=== PATIENT | male | born 1980 | race Caucasian/White ===

== ENCOUNTER 2023-04-13 06:43 | Emergency (ER) | payer MEDICAID, OTHER ==
[2023-04-13 08:35] LABS: BASOPHILS ABSOLUTE AUTO 0.12 K/uL (0.00-0.10); BASOPHILS PERCENT AUTO 0.5 % (0.1-1.3); EOSINOPHILS ABSOLUTE AUTO 0.45 K/uL (0.00-0.40); HEMOGLOBIN 12.5 g/dL (12.9-16.9); IMMATURE GRAN ABSOLUTE AUTO 0.43 K/uL (0.00-0.23); IMMATURE GRAN PERCENT AUTO 1.9 % (0.0-0.7); LYMPHOCYTES ABSOLUTE AUTO 1.34 K/uL (0.8-3.3); MEAN CORPUSCULAR HEMOGLOBIN 35.1 pg (31.6-35.5); MEAN CORPUSCULAR HGB CONC 34.7 g/dL (31.6-35.5); MEAN CORPUSCULAR VOLUME 101.1 fL (81.4-99.0); MONOCYTES ABSOLUTE AUTO 1.42 K/uL (0.20-0.90); MONOCYTES PERCENT AUTO 6.4 % (3.3-12.6); NEUTROPHILS ABSOLUTE AUTO 18.39 K/uL (1.0-7.6); NEUTROPHILS PERCENT AUTO 83.2 % (40.0-78.1); PLATELET COUNT,PLT 227 K/uL (130-375); RED BLOOD CELL COUNT 3.56 M/uL (4.14-5.76); WHITE BLOOD CELL COUNT,WBC 22.2 K/uL (3.2-11.0)
[2023-04-13 08:55] LABS: A/G RATIO 0.2 (1.2-2.2); ALANINE AMINOTRANSFERASE,ALT 54 U/L (12-78); ALBUMIN 1.2 g/dL (3.4-5.0); ALKALINE PHOSPHATASE 335 U/L (46-116); BILIRUBIN TOTAL 13.4 mg/dL (0.2-1.0); BLOOD UREA NITROGEN,BUN 28 mg/dL (7-18); CALCIUM 7.9 mg/dL (8.5-10.1); CARBON DIOXIDE,CO2 25 mmol/L (21-32); CHLORIDE,CL 97 mmol/L (100-108); CREATININE 1.1 mg/dL (0.8-1.3); ESTIMATED GFR 85 mL/min (>60); GLUCOSE RANDOM 126 mg/dL (74-106); POTASSIUM,K 3.9 mmol/L (3.6-5.2); SODIUM,NA 130 mmol/L (140-148)
[2023-04-13 08:56] LABS: ANION GAP 11.9 mmol/L (5.0-14.0)
[2023-04-13 08:57] LABS: ASPARTATE AMNIOTRANSFERASE,AST 129 U/L (15-37); PROTEIN TOTAL,TP 6.2 g/dL (6.4-8.2)
== END 2023-04-13 11:55 | disposition home or self-care (01) ==
LOC: JP.ED 06:43
DX: K72.00 Acute and subacute hepatic failure without coma (principal); F17.210 Nicotine dependence, cigarettes, uncomplicated; E66.9 Obesity, unspecified; Z79.899 Other long term (current) drug therapy
CPT/HCPCS: 36415; 49083; 80053; 85025; 99284

== ENCOUNTER 2023-04-16 08:15 | Emergency (ER) | payer OTHER ==
[2023-04-16 08:59] LABS: HEMATOCRIT 37.7 % (38.4-49.7); HEMOGLOBIN 13.1 g/dL (12.9-16.9); MEAN CORPUSCULAR HEMOGLOBIN 35.3 pg (31.6-35.5); MEAN CORPUSCULAR HGB CONC 34.7 g/dL (31.6-35.5); MEAN CORPUSCULAR VOLUME 101.6 fL (81.4-99.0); PLATELET COUNT,PLT 207 K/uL (130-375); RED BLOOD CELL COUNT 3.71 M/uL (4.14-5.76); WHITE BLOOD CELL COUNT,WBC 29.2 K/uL (3.2-11.0)
[2023-04-16 09:15] LABS: INR 1.4
[2023-04-16 09:18] LABS: A/G RATIO 0.2 (1.2-2.2); ALANINE AMINOTRANSFERASE,ALT 58 U/L (12-78); ALBUMIN 1.2 g/dL (3.4-5.0); ALKALINE PHOSPHATASE 373 U/L (46-116); ASPARTATE AMNIOTRANSFERASE,AST 150 U/L (15-37); BILIRUBIN TOTAL 10.5 mg/dL (0.2-1.0); BLOOD UREA NITROGEN,BUN 33 mg/dL (7-18); CALCIUM 8.3 mg/dL (8.5-10.1); CARBON DIOXIDE,CO2 27 mmol/L (21-32); CHLORIDE,CL 98 mmol/L (100-108); CREATININE 1.1 mg/dL (0.8-1.3); EST CRCL DRUG DOSING (CG) 95.04 mL/min; ESTIMATED GFR 85 mL/min (>60); GLUCOSE RANDOM 117 mg/dL (74-106); POTASSIUM,K 4.6 mmol/L (3.6-5.2); PROTEIN TOTAL,TP 6.6 g/dL (6.4-8.2); SODIUM,NA 131 mmol/L (140-148)
[2023-04-16 09:22] LABS: ANION GAP 10.6 mmol/L (5.0-14.0)
[2023-04-16 09:27] LABS: BAND ABSOLUTE MAN 1.17 K/uL; BAND PERCENT MAN 4 % (5-11); EOSINOPHILS ABSOLUTE MAN 0.29 K/uL (0.00-0.40); EOSINOPHILS PERCENT MAN 1 % (2-4); LYMPHOCYTES ABSOLUTE MAN 1.75 K/uL (0.8-3.3); LYMPHOCYTES PERCENT MAN 6 % (24-44); MONOCYTES ABSOLUTE MAN 1.75 K/uL (0.20-0.90); MONOCYTES PERCENT MAN 6 % (2-6); NEUTROPHILS ABSOLUTE MAN 24.24 K/uL (1.0-7.6); SEG NEUTROPHILS PERCENT MAN 83 % (36-66)
[2023-04-16 11:52] LABS: BODY FLUID TYPE PERITONEAL FLUID
[2023-04-16 12:06] LABS: GLUCOSE,BODY FLUID 146 mg/dL; LIPASE,BODY FLUID 176 U/L
[2023-04-16 12:15] LABS: PROTEIN,BODY FLUID < 2 g/dL; TRIGLYCERIDES,BODY FLUID 159 mg/dL
[2023-04-16 12:16] LABS: LACTATE DEHYDROGENASE,LDH 41 U/L (85-227)
[2023-04-16 12:17] LABS: ALBUMIN < 0.6 g/dL (3.4-5.0); AMYLASE BODY FLUID TYPE PERITONEAL FLUID; AMYLASE,BODY FLUID 94 U/L
[2023-04-16 12:25] LABS: MONONUCLEAR, BODY FLUID 80 %; POLYMORPHONUCLEAR, BODY FLUID 20 %; RBC,BODY FLUID 820 /ul; WBC BODY FLUID 40 /ul
== END 2023-04-16 10:15 | disposition home or self-care (01) ==
LOC: JP.ED 08:15 → JP.ACU 10:14
DX: K74.60 Unspecified cirrhosis of liver (principal); M86.669 Other chronic osteomyelitis, unspecified tibia and fibula; F41.9 Anxiety disorder, unspecified; R56.9 Unspecified convulsions; E66.9 Obesity, unspecified; F17.210 Nicotine dependence, cigarettes, uncomplicated; Z79.899 Other long term (current) drug therapy; Z68.26 Body mass index [BMI] 26.0-26.9, adult
CPT/HCPCS: 36415; 49083; 80053; 82040; 82150; 82945; 83615; 83986; 84157; 84478; 85025; 85610; 87015; 87070; 87102; 87116; 87205; 87206; 87220; 89050; 99284

== ENCOUNTER 2023-04-26 10:13 | Emergency (ER) | payer OTHER | END 2023-04-26 15:32 | disposition home or self-care (01) | LOC: JP.ED 10:13 | DX: K70.31 Alcoholic cirrhosis of liver with ascites (principal); I10 Essential (primary) hypertension; K21.9 Gastro-esophageal reflux disease without esophagitis; E66.9 Obesity, unspecified; F17.200 Nicotine dependence, unspecified, uncomplicated; Z79.899 Other long term (current) drug therapy; Z68.25 Body mass index [BMI] 25.0-25.9, adult | CPT/HCPCS: 99283 ==

== ENCOUNTER 2023-06-22 07:20 | Emergency (ER) | payer MEDICAID ==
[2023-06-22] MEDS ORDERED: Bupivacaine 0.5%/EPINEPHrine 1:200,000 1.8 ML Cartridge INJECT ONE (08:10)
== END 2023-06-22 08:46 | disposition home or self-care (01) ==
LOC: JP.ED 07:20
DX: K04.7 Periapical abscess without sinus (principal); I10 Essential (primary) hypertension; K21.9 Gastro-esophageal reflux disease without esophagitis; E66.9 Obesity, unspecified; F17.210 Nicotine dependence, cigarettes, uncomplicated; Z68.23 Body mass index [BMI] 23.0-23.9, adult; Z79.899 Other long term (current) drug therapy
CPT/HCPCS: 64400; 99283; J3490; 99282

== ENCOUNTER 2023-07-02 08:01 | Emergency (ER) | payer MEDICAID | END 2023-07-02 10:22 | disposition home or self-care (01) | LOC: JP.ED 08:01 | DX: L72.0 Epidermal cyst (principal); K70.30 Alcoholic cirrhosis of liver without ascites; I10 Essential (primary) hypertension; K21.9 Gastro-esophageal reflux disease without esophagitis; F17.210 Nicotine dependence, cigarettes, uncomplicated; E66.9 Obesity, unspecified; Z79.899 Other long term (current) drug therapy | CPT/HCPCS: 99283 ==

== ENCOUNTER 2024-04-17 16:59 | Emergency (ER) | payer MEDICAID ==
[2024-04-17] MEDS: Triamcinolone Acetonide 40 MG/ML 1 ML SDV IM STA (18:38)
== END 2024-04-17 18:52 | disposition home or self-care (01) ==
LOC: JP.ED 16:59
DX: L25.9 Unspecified contact dermatitis, unspecified cause (principal); I10 Essential (primary) hypertension; Z79.899 Other long term (current) drug therapy
CPT/HCPCS: 96372; 99282; J3301

== ENCOUNTER 2024-06-13 13:14 | Emergency (ER) | payer MEDICAID ==
[2024-06-13] MEDS: diphenhydrAMINE 50 MG/ML SDV IM ONE (14:41)
[2024-06-13] MEDS: methylPREDNISolone Sodium Succinate 40 MG/1 ML SDV IM ONE (14:41)
== END 2024-06-13 14:51 | disposition home or self-care (01) ==
LOC: JP.ED 13:14
DX: L50.9 Urticaria, unspecified (principal); F17.210 Nicotine dependence, cigarettes, uncomplicated; I10 Essential (primary) hypertension; E66.9 Obesity, unspecified; K21.9 Gastro-esophageal reflux disease without esophagitis; Z79.899 Other long term (current) drug therapy
CPT/HCPCS: 96372; 99282; 99283; J1200; J2919

== ENCOUNTER 2024-12-10 07:37 | Day surgery (SDC) | payer MEDICAID ==
[~2024-12-10 07:37] MED LIST: Bupivacaine 0.5%/EPINEPHrine 1:200,000 50 ML MDV ONE
[2024-12-10] MEDS ORDERED: Propofol 200 MG/20 ML SDV ONE ×2 (09:02→09:36)
[2024-12-10] MEDS ORDERED: fentaNYL 100 MCG/2 ML SDV ONE (09:02)
[2024-12-10] MEDS ORDERED: Midazolam 1 MG/ML 2 ML SDV ONE (09:02)
[2024-12-10] MEDS: ceFAZolin 2 GM in Premix Bag 1 BAG IV ONE (09:20)
[2024-12-10] MEDS: Lactated Ringers 1,000 ML IV SCH (09:28)
[2024-12-10] MEDS: metroNIDAZOLE/Normal Saline 500 MG in Premix Bag 1 BAG IV ONE (09:40)
[2024-12-10] MEDS: Bupivacaine 0.5% 50 ML MDV ONE (11:09)
[2024-12-10] MEDS: Lidocaine 1% with EPINEPHrine 1:100,000 50 ML MDV ONE (11:10)
== END 2024-12-10 11:27 | disposition home or self-care (01) ==
LOC: JP.SDS 07:37
PROVIDERS: ATTEND Surgery
DX: L05.91 Pilonidal cyst without abscess (principal); L72.0 Epidermal cyst; Z79.899 Other long term (current) drug therapy
CPT/HCPCS: 00300; 11421; 11771; 88304; J0665; J0690; J1836; J2250; J2704; J3010; J7120; J3490

== ENCOUNTER 2024-12-18 08:18 | Emergency (ER) | payer MEDICAID | END 2024-12-18 09:35 | disposition home or self-care (01) | LOC: JP.ED 08:18 | DX: L03.317 Cellulitis of buttock (principal); I10 Essential (primary) hypertension; E66.9 Obesity, unspecified; K21.9 Gastro-esophageal reflux disease without esophagitis; Z79.899 Other long term (current) drug therapy; Z68.29 Body mass index [BMI] 29.0-29.9, adult | CPT/HCPCS: 99283 ==